=== PATIENT | female | born 1960 | race Caucasian/White ===

== ENCOUNTER 2017-08-13 09:52 | Outpatient (CLI) | payer BC ==
--- OUTSIDE RECORDS SUMMARY | 2017-08-13 10:09 | XMS | Clinical Summary ---
:1960 Author Organization [facility] Address [address] [place] [address] Phone Care Team Providers Name Role Phone , Primary Care Provider Unavailable Allergies Not on File Current Medications Not on file Active Problems Not on file Social History Tobacco Use Types Packs/Day Years Used Date Never Assessed Sex Assigned at Date Recorded Not on file Last Filed Vital Signs Not on file Plan of Treatment Not on file Results Not on filefrom Last 3 Months
--- NOTE | 2017-08-13 12:50 | MMO ---
BILATERAL DIGITAL SCREENING MAMMOGRAMS: Date: 08/13/17 HISTORY: 56-year-old female presents for digital screening mammogram. COMPARISON: 03/21/16, 12/30/14, 05/06/12. FINDINGS: This patient's mammogram was interpreted with the assistance of computer-aided detection. There are a few typically benign stable calcifications. Scattered areas of fibroglandular density ar e noted bilaterally. IMPRESSION: BIRADS 2: Benign Finding(s) Continue routine screening. POS: GLORY
== END 2017-08-13 09:53 | disposition home or self-care (01) ==
LOC: SCSMAMMO 09:52
PROVIDERS: ATTEND Family Medicine
DX: Z12.31 Encounter for screening mammogram for malignant neoplasm of breast (principal)
CPT/HCPCS: 77067; G0202

== ENCOUNTER 2018-08-18 12:54 | Outpatient (CLI) | payer BC ==
--- NOTE | 2018-08-18 15:34 | MMO ---
BILATERAL SCREENING MAMMOGRAMS: Date: 08/18/18 HISTORY: Annual screening mammography. This patient's mammogram was interpreted with the assistance of computer-aided detection. COMPARISON: 08/13/17, 03/21/16, 12/30/14, 05/07/13. FINDINGS: Scattered fibroglandular densities are seen in each breast. There is no dominant mass or suspicious g rouping of microcalcifications seen in either breast. IMPRESSION: BIRADS 1: Negative Routine annual mammographic screening is recommended. POS: GLORY
== END 2018-08-18 12:55 | disposition home or self-care (01) ==
LOC: SCSMAMMO 12:54
PROVIDERS: ATTEND Family Medicine
DX: Z12.31 Encounter for screening mammogram for malignant neoplasm of breast (principal)
CPT/HCPCS: 77067

== ENCOUNTER 2018-08-18 13:00 | Outpatient (CLI) | payer BC ==
--- NOTE | 2018-08-18 15:49 | ULT ---
THYROID SONOGRAM: Date: 08/18/18 HISTORY: Thyroid nodules. Follow-up. COMPARISON: 03/21/16. FINDINGS: On today's exam, the right thyroid lobe is 4.3 cm length with small, well circumscribed, oval, hypoec hoic nodules measuring up to 1.0 cm centrally and 1.4 cm at the inferior pole. The left thyroid lobe is 3.5 cm length with a 1.1 cm hypoechoic nodule near the inferior pole. Isthmus is 0.3 cm. IMPRESSION: Small nonaggressive appearing bilateral thyroid nodules. POS: ELOYH
== END 2018-08-18 13:01 | disposition home or self-care (01) ==
LOC: SCSULT 13:00
PROVIDERS: ATTEND Family Medicine
DX: E04.2 Nontoxic multinodular goiter (principal)
CPT/HCPCS: 76536

== ENCOUNTER 2022-02-12 11:16 | Outpatient (CLI) | payer BC | END 2022-02-12 11:17 | disposition home or self-care (01) | LOC: CTENTCT 11:16 | PROVIDERS: ATTEND Otolaryngology Plastic Surgery within the Head & Neck | DX: J32.8 Other chronic sinusitis (principal) | CPT/HCPCS: 70486 ==